=== PATIENT | male | born 1955 | race Caucasian/White ===

== ENCOUNTER → 2018-01-21 10:46 | Outpatient (CLI) | payer BC, SELFPAY ==
[2018-01-21 09:45] VITALS: BMI 31.1
--- NOTE | 2018-01-21 10:48 | CDU_ITS ---
Reason For Study: VERTIGO Rt. Velocities/BP Lt. Velocities/BP Prox CCA 96.2/25.8 cm/sec. Prox CCA 101/26.4 cm/sec. Mid CCA 105/30.5 cm/sec. Mid CCA 96.2/27.6 cm/sec. Dist CCA 103/29.9 cm/sec. Dist CCA 62.1/23.5 cm/sec. Prox ICA 67.4/23.5 cm/sec. Prox ICA 59.8/22.3 cm/sec. Mid ICA 56.3/23.5 cm/sec. Mid ICA 45.2/24.0 cm/sec. Dist ICA 69.3/33.3 cm/sec. Dist ICA 71.9/39.3 cm/sec. Rt. ICA/CCA = .7. Lt. ICA/CCA = .7. Prox ECA 81.5/14.7 cm/sec. Prox ECA 59.8/11.1 cm/sec. Rt. Vert. 49.5/21.2 cm/sec. Lt. Vert. 45.2/22.8 cm/sec. Right Extracranial There is intimal thickening but no significant atherosclerotic plaque noted in the right common carotid artery. There is homogeneous, smooth atherosclerotic plaque noted in the right internal carotid artery. There is intimal thickening but no significant atherosclerotic plaque noted in the right external carotid artery. Antegrade flow is noted in the right vertebral artery. There is homogeneous, smooth atherosclerotic plaque noted in the right bulb. Left Extracranial There is homogeneous, smooth atherosclerotic plaque noted in the left common carotid artery. There is heterogeneous, smooth atherosclerotic plaque noted in the left internal carotid artery. There is intimal thickening but no significant atherosclerotic plaque noted in the left external carotid artery. Antegrade flow is noted in the left vertebral artery. There is heterogeneous, smooth atherosclerotic plaque noted in the left bulb. Procedure Carotid Duplex 44186. The exam was diagnostic. Exam performed in department. Interpretation Summary Mild (<50%) stenosis right extracranial internal carotid. Mild (<50%) stenosis left extracranial internal carotid. Flow within the vertebral arteries is antegrade bilaterally. Ordering Physician: Román Fried Performed By: Isaac Urbano RVT
== END ==
PROVIDERS: Family Provider Family Medicine; PCP Family Medicine; Visit Provider Internal Medicine Cardiovascular Disease
DX: I65.29 Occlusion and stenosis of unspecified carotid artery (principal)
CPT/HCPCS: 93880

== ENCOUNTER → 2018-06-10 15:45 | Outpatient (CLI) | payer BC, SELFPAY ==
[2018-01-21 09:45] VITALS: BMI 31.1
--- NOTE | 2018-06-10 15:49 | RAD_ITS ---
STUDY: X-RAY - LUMBAR SPINE REASON FOR EXAM: Male, 62 years old. Back pain. TECHNIQUE: 2 view(s) of the lumbar spine were obtained. COMPARISON: None FINDINGS: There is approximately 8.6 degrees of leftward lumbar degenerative scoliosis with a mild associated rotatory component. Mild to moderate spondylosis is seen throughout the lumbar spine. There is no acute fracture lucency. There is no cortical step-off. There is no acute compression deformity. Regions of the lungs within the field of view appear unremarkable. There is moderate facet arthrosis involving L3, L4, L5 and S1. There may be mild L5-S1 and mild L4-L5 degenerative disc disease. RAD/Lumbar Spine 2 or 3 Views IMPRESSION: No evident acute osseous abnormality. Degenerative rotoscoliosis, mild. Please see above. Spondylosis, facet arthrosis and degenerative disc disease as outlined above. Electronically Signed: Black Stacy MD at 16:27 EDT , Service support ,
== END ==
PROVIDERS: Family Provider Family Medicine; PCP Family Medicine; Referring Provider Anesthesiology Pain Medicine; Visit Provider Anesthesiology Pain Medicine
DX: M54.9 Dorsalgia, unspecified (principal)
CPT/HCPCS: 72100

== ENCOUNTER 2018-06-19 21:20 | Emergency (ER) | payer BC, SELFPAY ==
[2018-01-21 09:45] VITALS: BMI 31.1
[2018-06-19 21:21] VITALS: BP 162/88; PULSE 65; RESP 18; TEMP 36.1; O2SAT 98; BMI 30.1
--- NOTE | 2018-06-19 22:00 | CT_ITS ---
STUDY: CT ABDOMEN AND PELVIS WITHOUT CONTRAST REASON FOR EXAM: Male, 62 years old. Right flank pain RADIATION DOSAGE (If Supplied By Facility): CTDIvol = ( 14.01 ) mGy, DLP = ( 756.12 ) mGycm TECHNIQUE: Transaxial images were obtained from the dome of the diaphragm to the symphysis pubis without oral contrast, and without intravenous contrast. Sagittal and coronal images were reconstructed. Individualized dose optimization techniques were used for this CT. COMPARISON: None. FINDINGS: The visualized lung bases are unremarkable. The visualized portions of the heart are within normal limits. Normal liver. Normal gallbladder and extrahepatic biliary system. Normal spleen. Normal pancreas. Normal bilateral adrenal glands. 4 mm stone in the distal right ureter just above the ureterovesical junction with changes of moderate acute obstructive uropathy. Multiple nonobstructing left renal stones. Normal visualized stomach. Normal small intestine. Normal colon. Appendectomy. Normal abdominal aorta. Normal inferior vena cava. Normal retroperitoneum. Normal urinary bladder. Normal abdominal wall. Bilateral hip prostheses. Remote deformity of the right iliac crest. CT/Abdomen/Pelvis without Cont IMPRESSION: 4 mm stone in the distal right ureter just above the ureterovesical junction with changes of moderate acute obstructive uropathy. Electronically Signed: Jean Claude Mcallister MD at 22:44 EDT Tel , Service support ,
[2018-06-19] MEDS: Ondansetron 4 MG/2 ML Vial IV (22:16)
[2018-06-19] MEDS: Ketorolac 30 MG/ML Syringe IV (22:16)
[2018-06-19] MEDS: 0.9% Normal Saline 1,000 ML 1000 ML IV (22:16)
[2018-06-19 22:29] LABS: Absolute Lymphocyte Count 1.52 X10^3/ul (0.83-4.51); Absolute Neutrophil Count 7.5 X10^3/uL (2.0-7.7); Basophil# 0.01 X10^3/uL; Basophil% 0.1 % (0-1); Eosinophil# 0.01 X10^3/uL; Eosinophils% 0.1 % (0-5); Hemoglobin 14.8 g/dl (13.0-16.5); Lymphocyte # 1.52 X10^3/ul (4.0); Mean Corp Hgb Conc 34.4 g/gl (32-36); Mean Corpuscular Hgb 29.7 pg (27.0-32.0); Mean Corpuscular Volume 86.3 fL (80-94); Mean Platelet Vol. 10.2 fl (6.2-12.0); Monocyte% 5.3 % (0-10); Neutrophil # 7.46 X10^3/uL (2.7-7.7); Neutrophil % 78.4 % (47-70); Platelet Count 143 K/mm3 (150-450); RBC Distribution Width SD 41.1 fl (35.1-43.9); Red Blood Count 4.98 M/mm3 (4.6-6.2); White Blood Count 9.5 K/mm3 (4.4-11.0)
[2018-06-19 22:30] LABS: POSITIVE COUNT NO; POSITIVE DIFFERENTIAL NO; POSITIVE MORPHOLOGY NO
[2018-06-19 22:45] LABS: Bacteria 0 SEEN /hpf (None Seen); Mucous, Urine 0 SEEN /hpf (<or=2+); Squamous Epithelial Cells - UA 0 SEEN /hpf (0-5); White Blood Cells 0 SEEN /hpf (0-5)
[2018-06-19 22:46] LABS: ALB/GLOB Ratio 1.6 RATIO (0.9-2.4); AST(SGOT) 28 U/L (15-37); Alanine Aminotransfer ALT/SGPT 39 U/L (16-61); Albumin, Serum 4.1 g/dL (3.2-5.0); Alkaline Phosphatase 58 U/L (45-117); Anion Gap 6 (5-15); BUN 21 mg/dL (7-18); BUN/Creat Ratio 15.2 RATIO (10-20); Calcium,Total 8.8 mg/dL (8.5-10.1); Chloride 105 mmol/L (98-107); Creatinine, Serum 1.38 mg/dL (0.70-1.30); EST Glomerular Filtration Rate 56 mL/min (>60); Est Glom Filt Rate - Afr Amer 68 mL/min (>60); Estimated Creatinine Clearance 58.78 ml/min; Globulin 2.5 g/dL (2.2-4.2); Glucose 118 mg/dL (74-106); Lipase 56 U/L (73-393); Protein, Total 6.6 g/dL (6.4-8.2); Sodium Level 138 mmol/L (136-145)
[2018-06-19 22:48] LABS: Color, Urine Yellow (Yellow); Glucose, Dipstick Normal (Normal); Ketone-Dipstick 5 mg/dl (Negative); Leukocyte Esterase-Dipstick Negative /ul (Negative); Nitrite-Dipstick Negative (Negative); Occult Blood-Urine 250 /ul (Negative); Protein-Dipstick 15 mg/dl (Negative); Specific Gravity, Urine 1.015 (1.002-1.030); Urine Bilirubin Dipstick Negative (Negative); Urine Clarity Sl. Cloudy (Clear); Urine Urobilinogen Normal (Normal); Urine pH 6.5 (5.0 - 8.0)
[2018-06-19 22:55] LABS: Red Blood Cells-Urine 50-100 SEEN /hpf (0-5)
--- NOTE | 2018-06-19 23:06 | ED.DCSUM_ITS ---
- ER Visit Summary Date of Service: 06/19/18 Chief Complaint: Abdominal pain History of Present Illness: The patient is a 62 M with right flank abdominal pain. Symptoms started today. Associate with nausea. He never had this before. He had some sweats but no fevers. Physical Examination: Afebrile and vital signs unremarkable. Right flank tender to palpation. Otherwise exam unremarkable. Test Results: Urinalysis shows 50-[address] shows a 4 mm right distal ureter stone with moderate obstructive uropathy changes. BUN 21 and creatinine 1.38. Platelets 143. Emergency Department Course and Treatment: Patient treated with fluids, Toradol, Zofran. On reevaluation, the patient's symptoms have resolved. Patient is appropriate for outpatient follow-up. He was referred to urology. He has Percocet at home. He is on Flomax. He was instructed to strain all urine. He will use anti-inflammatories. Return if he has any complications. Treatment Plan: As above Disposition: Discharge Impression: 1. Right ureteral colic This note was generated with [employer] dictation software. It may contain incorrect words, spelling, and punctuation that were not noted in review of the chart prior to signing ED Disposition - Plan for ED Patient: Referrals: Susannha Person MD [Primary Care Provider] -
--- NOTE | 2018-06-19 23:06 | ED.DEP ---
ED Disposition - Plan for ED Patient: Instructions: ED Stone Renal W Colic Prescriptions: Ondansetron [Zofran Odt] 4 mg PO Q8H PRN PRN #10 tab PRN Reason: Nausea Naproxen [Naprosyn] 500 mg PO BID PRN #20 tab Referrals: Aquilino Guerrero MD [STAFF PHYSICIAN] - Graciela Grimaldo MD [STAFF PHYSICIAN] -
[2018-06-19] MEDS: HYDROcodone Bitartrate/Apap 5/325 Tablet PO (23:25)
[2018-06-19 23:28] VITALS: BP 145/84; PULSE 55; RESP 15; O2SAT 98
== END 2018-06-19 23:29 | disposition home or self-care (01) ==
LOC: ED 22:08
PROVIDERS: Emergency Provider Emergency Medicine; Family Provider Family Medicine; PCP Family Medicine
DX: N20.1 Calculus of ureter (principal)
CPT/HCPCS: 74176; 80053; 81001; 83690; 85025; 96361; 96374; 96375; 99283; J7030; A4216; J2405

== ENCOUNTER → 2018-06-23 17:14 | Outpatient (CLI) | payer BC, SELFPAY ==
[2018-06-19 21:21] VITALS: BMI 30.1
[2018-06-27 12:07] LABS: Ca Oxalate, Monohydrate 98 % (.); Size 4x3x3 mm (.)
== END ==
PROVIDERS: Family Provider Family Medicine; PCP Family Medicine; Referring Provider Nurse Practitioner Adult Health; Visit Provider Nurse Practitioner Adult Health
DX: N20.0 Calculus of kidney (principal)
CPT/HCPCS: 82360

== ENCOUNTER 2018-07-09 10:08 | Day surgery (SDC) | payer BC, SELFPAY ==
--- NOTE | 2018-07-09 10:16 | RAD_ITS ---
STUDY: X-RAY - ABDOMEN/PELVIS REASON FOR EXAM: Male, 62 years old. Abdominal pain. Kidney stones. TECHNIQUE: Single AP view of the abdomen / pelvis. COMPARISON: None. FINDINGS: Normal visualized lung bases. There is a moderate amount of colonic fecal material. Surgical sutures are seen in the medial aspect of the cecum. There is a 6.4 mm calculus in the upper pole of the left kidney. A punctate calcification is also seen in the lower pole of the left kidney. Normal soft tissue structures. There are degenerative changes of the visualized lumbar spine. Minimal levoscoliosis. Bilateral hip replacements. RAD/Abdomen Single View IMPRESSION: 6.4 mm calculus in the upper pole of the left kidney and a punctate calcification in the lower pole of the left kidney. Electronically Signed: Jose Angel Zhou, at 14:00 EDT , Service support ,
[2018-07-09 10:38] VITALS: BP 118/69; PULSE 50; RESP 16; TEMP 36.5; O2SAT 100; BMI 30.8
--- NOTE | 2018-07-09 12:24 | DCINST_ITS ---
Discharge Diet: Light diet - advance as tolerated Discharge Activity: May not drive while taking narcotic pain medications. Allergies/Adverse Reactions: Allergies No Known Allergies Allergy (Verified 07/02/18 08:50) Medications to take at Discharge atorvastatin 10 mg tablet 10 mg PO DAILY 01/20/18 yxvtsxgrzrvp-vavblopu-jtieoo tablet 1 tab PO DAILY 01/20/18 tamsulosin 0.4 mg capsule 0.4 mg PO DAILY 01/20/18 levothyroxine 200 mcg tablet 200 mcg PO DAILY 01/21/18 omega-3 fatty acids 1,000 mg capsule 1,000 mg PO DAILY 01/21/18 Pantoprazole Sodium 40 mg PO DAILY 06/19/18 Primary Care Physician: Susannah Person MD [Primary Care Provider] - Test Results: Test results from this visit will be discussed in further detail at your follow- up appointment, if applicable. Please Follow Up With: Aquilino Guerrero MD When: in 2 weeks, please call to make an appointment.
[2018-07-09] MEDS: Cefazolin 2 GM in 0.9% Normal Saline 100 ML IV (12:26)
--- NOTE | 2018-07-09 13:44 | OP.PCM_ITS ---
Report of Operation Date of Procedure: 07/09/18 Pre-Operative Diagnosis: Left renal calculi Post-Operative Diagnosis: Same Surgery/Procedure Performed:: Left extracorporeal shockwave lithotripsy Description of Surgical Findings:: 62-year-old male with 2 stones in the left kidney presented to the office after passing a stone fragment today renal proceed with shockwave lithotripsy of the remaining stones in the left kidney. 62-year-old male taken back to the operating room at the smooth induction of general anesthesia he was placed supine on the table we localize the stone in the upper pole the left kidney under fluoroscopy we put the lithotripter under F2 focal point of the stone we delivered a total of 2000 shockwaves To the stone which stone the break-up with a little tiny pieces we could not see the stone fragment after the treatment we did have the shock stone on gated treatments because he was having some ectopy on the first beginning shockwaves, we then treated the stone the lower pole of the left kidney with another 200 s hockwaves. After the treatments both stones were broken up really well no stent was placed patient anesthetic was reversed he was extubated and taken back to the PACU in good condition. He will follow-up in a few weeks with a KUB Type of Anesthesia:: General Drains: none - Admit VTE Documentation VTE Present on Admission: No
[2018-07-09 13:53] VITALS: BP 118/69; BP 141/98; PULSE 61; RESP 18; TEMP 35.7; O2SAT 99
[2018-07-09 13:58] VITALS: BP 118/69; BP 141/98; PULSE 56; RESP 18; TEMP 36; O2SAT 99
[2018-07-09 14:50] VITALS: BP 118/69
== END 2018-07-09 14:51 | disposition home or self-care (01) ==
LOC: SDC 10:09 → AC 10:12
PROVIDERS: Family Provider Family Medicine; PCP Family Medicine; Referring Provider Urology; Visit Provider Urology
PROC: (CPT 50590; principal; 2018-07-09 12:05)
DX: N20.0 Calculus of kidney (principal); N20.1 Calculus of ureter; E03.9 Hypothyroidism, unspecified; M54.9 Dorsalgia, unspecified
CPT/HCPCS: 00873; 50590; 74018; J7120; J2405

== ENCOUNTER → 2019-02-12 10:04 | Outpatient (CLI) | payer BC, SELFPAY ==
[2019-01-22 09:15] VITALS: BMI 31.9
--- NOTE | 2019-02-12 10:04 | CDU_ITS ---
Reason For Study: carotid stenosis Rt. Velocities/BP Lt. Velocities/BP Prox CCA 113.9/21.3 cm/sec. Prox CCA 124.4/28.6 cm/sec. Mid CCA 129.5/25.2 cm/sec. Mid CCA 112.1/26.2 cm/sec. Dist CCA 100.8/23.9 cm/sec. Dist CCA 98.6/24.9 cm/sec. Prox ICA 102.5/15.7 cm/sec. Prox ICA 56.9/20.0 cm/sec. Mid ICA 66.2/23.4 cm/sec. Mid ICA 56.9/18.8 cm/sec. Dist ICA 93.8/38.8 cm/sec. Dist ICA 86.3/33.5 cm/sec. Rt. ICA/CCA = .8. Lt. ICA/CCA = .8. Prox ECA 106.5/20.6 cm/sec. Prox ECA 87.6/13.9 cm/sec. Rt. Vert. 54.2/16.8 cm/sec. Lt. Vert. 50.7/20.0 cm/sec. Right Extracranial There is intimal thickening but no significant atherosclerotic plaque noted in the right common carotid artery. There is homogeneous, smooth atherosclerotic plaque noted in the right internal carotid artery. There is intimal thickening but no significant atherosclerotic plaque noted in the right external carotid artery. Antegrade flow is noted in the right vertebral artery. There is homogeneous, smooth atherosclerotic plaque noted in the right bulb. Left Extracranial There is homogeneous, smooth atherosclerotic plaque noted in the left common carotid artery. There is heterogeneous, smooth atherosclerotic plaque noted in the left internal carotid artery. There is intimal thickening but no significant atherosclerotic plaque noted in the left external carotid artery. Antegrade flow is noted in the left vertebral artery. There is heterogeneous, smooth atherosclerotic plaque noted in the left bulb. Procedure Carotid Duplex [id number]. The exam was diagnostic. Exam performed in department. Interpretation Summary Smooth plaque located with the right carotid bulb and proximal internal carotid artery. <50% stenosis right internal carotid <50% stenosis right external carotid Irregular heterogenous plaque at the proximal left internal carotid <50% stenosis left internal carotid <50% stenosis left external carotid Patent and antegrade vertebrals bilaterally No significant change from the previous examination of January 21, 2018 Ordering Physician: Román Fried Referring Physician: Amber Linares Performed By: Isaac Urbano RVT
== END ==
PROVIDERS: Family Provider Family Medicine; PCP Family Medicine; Referring Provider Physician Assistant Medical; Visit Provider Physician Assistant Medical
DX: I65.29 Occlusion and stenosis of unspecified carotid artery (principal); E78.5 Hyperlipidemia, unspecified
CPT/HCPCS: 93880

== ENCOUNTER 2019-11-09 10:44 | Outpatient (RCR) | payer BC, SELFPAY ==
[2019-01-22 09:15] VITALS: BMI 31.9
--- NOTE | 2019-11-11 09:38 | HP.PTEVAL_ITS ---
Patient's Visit Information ALEE KING is a 63 year old M referred to Physical Therapy by Out of Town Doctor with a diagnosis of R Infraspinatus strain. Date of Evaluation: 11/11/19 Physical Therapist: Connor Palm PT, THI, SCS, CSCS - Visit Plan Frequency: Every Other Week Duration: 4 Weeks Plan: Follow up in 2 week sto recheck. Has a good understanding of what activities and positions will increase pain. - Subjective Patient states that he began to experience R shoulder pain following playing Racketball approximately 1 month ago. Mr. King is quite active playign racketball and lifting weights several times per week. He states about 25 years ago he subluxed his right shoulder during a Judo throw. 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 - Pain Right Shoulder Pain Intensity (Out of 10): 4 Pain Intensity Range: 1, 6 Comment: Depending on activity - Objective MR King is a pleasant 63 you who was referred to our care by Dr Oleary following an injury to his right shoulder. On evaluation today patient has essentially full ROM. He has mildly positive impingement signs with flexion with and overpressure and abduction ext rotation. Additional his has pain with resisted cross arm abduction. His pain is located in the anterior bicep supraspinatus region. Resited internal rotation reproduces some mild discomfort. MMT reveals a slight imbalance R to L and int to ext for this right hand dominate individual. MMT R Ext/Int 28/41.8 L 33/48. I did not appreicate an increase in pain with deep palpation to the infraspinatus tendon at this time. - Goals Goal 1:: Understand the injured anatomy and positions or activities to avoid Goal Time Frame: 1 Week Goal 2:: Start a phase 3 strengthening program follow up in 2 weeks. Goal Time Frame: 2 Weeks Goal 3:: Develop a HEP to work on imbalances R?L and INT Ext. Teach importance of scapula to take force away from rc. - Rehabilitation Potential Physical Therapy Diagnosis: Rotator Cuff strain with potential DJD labral Rehabilitation Potential: Good - Anticipated Interventions Patient/Client Instruction: Educate patient on: Condition, Plan of Care, Benefits of Fitness Program For the Purpose of:: To decrease pain, To increase ROM Therapeutic Exercise to Include: Strength training, Endurance training For the Purpose of:: To decrease pain, To improve performance and independence with ADL's, To improve health of tissue Ultrasound (thermal/non thermal): Yes - PRN For the Purpose of:: To decrease pain, To decrease swelling/inflammation Thank you for the opportunity to evaluate your patient. For Medicare and Medicare HMO plans, please review the plan of care and approve it. It will need to be FAXED BACK to us at [phone] for Medicare purposes. For Medicare only, by signing this I certify the plan of care. Please let me know if there are questions or concerns regarding this plan of care. Physician Sign ature: Date:
== END 2019-11-09 19:00 | disposition home or self-care (01) ==
LOC: PT 10:44
PROVIDERS: PCP Family Medicine; Referring Provider Family Medicine; Visit Provider Family Medicine
DX: S46.811D Strain of other muscles, fascia and tendons at shoulder and upper arm level, right arm, subsequent encounter (principal); M89.9 Disorder of bone, unspecified
CPT/HCPCS: 97110; 97161

== ENCOUNTER → 2020-02-18 09:52 | Outpatient (CLI) | payer BC, SELFPAY ==
[2019-01-22 09:15] VITALS: BMI 31.9
--- NOTE | 2020-02-18 09:55 | CDU_ITS ---
Reason For Study: Bruit Rt. Velocities/BP Lt. Velocities/BP Prox CCA 74.7/13.4 cm/sec. Prox CCA 124.7/20.6 cm/sec. Mid CCA 107.3/20 cm/sec. Mid CCA 106.5/29.8 cm/sec. Dist CCA 103.4/23.9 cm/sec. Dist CCA 86.4/24.3 cm/sec. Prox ICA 83.9/18.6 cm/sec. Prox ICA 77.7/17.6 cm/sec. Mid ICA 57.5/16.8 cm/sec. Mid ICA 53.2/18.8 cm/sec. Dist ICA 97.4/37.1 cm/sec. Dist ICA 97.4/40.7 cm/sec. Rt. ICA/CCA = 0.9. Lt. ICA/CCA = 0.9. Prox ECA 94.3/12.1 cm/sec. Prox ECA 80.2/11.4 cm/sec. Rt. Vert. 52.2/19.2 cm/sec. Lt. Vert. 60.8/21.2 cm/sec. Right Extracranial There is homogeneous, smooth atherosclerotic plaque noted in the right common carotid artery. There is homogeneous, smooth atherosclerotic plaque noted in the right internal carotid artery. There is intimal thickening but no significant atherosclerotic plaque noted in the right external carotid artery. Antegrade flow is noted in the right vertebral artery. There is homogeneous, smooth atherosclerotic plaque noted in the right bulb. Left Extracranial There is homogeneous, smooth atherosclerotic plaque noted in the left common carotid artery. There is heterogeneous, irregular atherosclerotic plaque noted in the left internal carotid artery. There is intimal thickening but no significant atherosclerotic plaque noted in the left external carotid artery. Antegrade flow is noted in the left vertebral artery. There is heterogeneous, irregular atherosclerotic plaque noted in the left bulb. Procedure Carotid Duplex 47116. This is a Carotid Duplex examination using B-mode, color flow and specral Doppler. Exam performed in department. Interpretation Summary Smooth homogeneous plaque of the proximal right internal carotid artery with less than 50% stenosis Less than 50% stenosis right external carotid Minimal irregular heterogenous plaque of the proximal left internal carotid with less than 50% stenosis Less than 50% stenosis left external carotid Patent and antegrade vertebrals bilaterally No change from the previous examination of February 12, 2019 Ordering Physician: Román Fried Referring Physician: Susannah Person Performed By: Margot Plata RVT
[2020-02-18 14:03] LABS: BNP,B-Type NATRIURETIC PEPTIDE 75.8 pg/mL (0-100)
[2020-02-18 14:59] LABS: Anion Gap 4 (5-15); BUN 22 mg/dL (7-18); BUN/Creat Ratio 17.6 RATIO (10-20); Calcium,Total 9.2 mg/dL (8.5-10.1); Chloride 106 mmol/L (98-107); Creatinine, Serum 1.25 mg/dL (0.70-1.30); EST Glomerular Filtration Rate 62 mL/min (>60); Est Glom Filt Rate - Afr Amer 75 mL/min (>60); Glucose 78 mg/dL (74-106); Potassium 3.7 mmol/L (3.5-5.1); Sodium Level 140 mmol/L (136-145); Thyroid Stim Hormone (TSH) < 0.01 uIU/mL (0.358-3.74)
== END ==
PROVIDERS: PCP Family Medicine; Referring Provider Internal Medicine Cardiovascular Disease; Visit Provider Internal Medicine Cardiovascular Disease
DX: E78.5 Hyperlipidemia, unspecified (principal); R09.89 Other specified symptoms and signs involving the circulatory and respiratory systems
CPT/HCPCS: 36415; 80048; 83880; 84443; 93880

== ENCOUNTER 2021-03-27 12:31 | Outpatient (CLI) | payer BC, SELFPAY ==
--- NOTE | 2021-03-27 12:40 | ECHOD_ITS ---
Reason For Study: CAD/ASHD Procedure This was a 2D Doppler, Color Flow transthoracic echocardiogram. Myocardial strain analysis was performed in this exam to aid in the assessment of cardiac function. Exam performed in department. Left Ventricle Normal LV size. Left ventricular systolic function is normal. The estimated ejection fraction is 60 %. Normal diastology for age. No regional wall motion abnormalities noted. Right Ventricle Normal right ventricle. Normal systolic function. Atria Normal left atrium. Normal right atrium. Mitral Valve Normal mitral valve. Tricuspid Valve Normal tricuspid valve. Mild tricuspid valve insufficiency. Pulmonary artery systolic pressure is 26 mmHg. Aortic Valve Normal aortic valve. Trisinus/trileaflet aortic valve. Pulmonic Valve Normal pulmonic valve. Great Vessels Normal aortic root. The pulmonary artery is normal size. Normal inferior vena cava. Pericardium/Pleural No pericardial effusion. MMode/2D Measurements & Calculations LVIDd: 5.7 cm IVSd: 0.94 cm Ao root diam: 3.4 cm LVIDs: 3.8 cm LVPWd: 0.93 cm LA dimension: 3.9 cm RVDd: 4.0 cm FS: 33.2 % LAV(MOD-bp): 67.9 ml LA A4 area: 21.6 cm2 RA A4 area: 22.6 cm2 LAV(MOD-bp) Indexed: 31.1 ml/m2 LAV(MOD-sp2): 67.3 ml LAV(MOD-sp4): 61.7 ml Time Measurements MV dec time: 0.24 sec Doppler Measurements & Calculations MV E max lamont: 56.1 cm/sec Lat Peak E' Lamont: 10.8 cm/sec Med Peak E' Lamont: 9.0 cm/sec MV A max lamont: 50.0 cm/sec E/E' lat: 5.2 E/E' med: 6.2 MV E/A: 1.1 MV V2 max: 58.6 cm/sec MV P1/2t max lamont: 58.9 cm/sec Ao V2 max: 112.4 cm/sec MV max P.4 mmHg MV P1/2t: 91.4 msec Ao max P.0 mmHg MV V2 mean: 31.6 cm/sec MV dec slope: 188.8 cm/sec2 MV mean P.47 mmHg MVA(P1/2t): 2.4 cm2 MV V2 VTI: 26.6 cm LV V1 max: 86.7 cm/sec PA V2 max: 99.2 cm/sec TR max lamont: 239.0 cm/sec LV V1 max P.0 mmHg TR max P.8 mmHg ECHO/Echo Complete Interpretation Summary Normal LV size. Left ventricular systolic function is normal. The estimated ejection fraction is 60 %. Normal diastology for age. Pulmonary artery systolic pressure is 26 mmHg. The global longitudinal strain is normal. The global longitudinal strain = -21 % (normal). Ordering Physician: Román Fried Referring Physician: Susannah Person Performed By: Ki Shen RCS
--- NOTE | 2021-03-27 12:40 | CT_ITS ---
STUDY: CARDIAC CALCIUM SCORING - CT CHEST REASON FOR EXAM: Male, 65 years old. CTA CORONARY ABNL CARDIOVASCULAR RESULTS TECHNIQUE: Axial non-enhanced images were acquired through the heart for the sole purpose of measuring coronary artery calcium. Individualized dose optimization techniques were used for this CT. COMPARISON: None. FINDINGS: Visualized surrounding anatomy: Normal. Left Main Coronary Artery: 88 Left Anterior Descending Artery: 34.6 Left Circumflex Artery: 35 Right Coronary Artery: 5.96 Total Calcium Score: 163 CT/Limited Chest CT w/CCTA IMPRESSION: A Calcium Score of 163 places the patient in the approximate 50 and 75 percentile, based on the [employer] data calculator. Please go to: [email or web address]-[facility].org/Calcium/input.aspx , for a description of the calculator. Electronically Signed: Juan Alberto Sifuentes MD at 13:51 EST ,
[2021-03-27 12:47] VITALS: BP 118/77; PULSE 55; RESP 16; TEMP 36.6; O2SAT 96; BMI 30.8
--- NOTE | 2021-03-27 15:37 | CA.SCORE ---
Calcium Scoring Coronary Calcium Scoring: High-resolution Computed Tomographic imaging of the chest was performed on [03/27/2021], with particular attention paid to the coronary arteries. Images from the examination were analyzed for the presence and extent of coronary artery calcification , using coronary calcium quantification software. The patient tolerated the procedure well and there were no complications. The results of the coronary calcification analysis are provided below. Left main score 87.6 Left anterior descending artery score 36 4.6 Left circumflex artery 35 Right coronary artery score 5.9 Total Agatston score 163 The above is suggestive of moderate plaque burden placing him between the 50th and 75th percentile of people of the same gender and similar age. Calcium Scoring Interpretation: 0 No identifiable atherosclerotic plaque. Very low cardiovascular disease risk. <5% chance of presence coronary artery disease A Negative Examination 1-10 Minimal Plaque burden. Significant coronary artery disease very unlikely. 11-100 Mild plaque burden. Likely mild or minimal coronary atherosclerosis. 101-400 Moderate plaque burden Moderate non-obstructive coronary artery disease highly likely. Over 400 Extensive plaque burden. High likelihood of at least one significant coronary stenosis (>50% diameter)
== END 2021-03-27 23:59 | disposition home or self-care (01) ==
PROVIDERS: PCP Family Medicine; Referring Provider Internal Medicine Cardiovascular Disease; Visit Provider Internal Medicine Cardiovascular Disease
DX: E78.5 Hyperlipidemia, unspecified (principal); R09.89 Other specified symptoms and signs involving the circulatory and respiratory systems; I25.10 Atherosclerotic heart disease of native coronary artery without angina pectoris
CPT/HCPCS: 75571; 76380; 93306

== ENCOUNTER 2021-04-27 06:54 | Outpatient (CLI) | payer BC, SELFPAY ==
--- NOTE | 2021-04-27 13:31 | STRESSREP_ITS ---
Stress Test Report Exercise myocardial perfusion stress test. 65-year-old man with a history of coronary calcification and chest pain. Stress protocol: Resting EKG demonstrates sinus bradycardia with a rate of 48 bpm normal intervals are noted. The patient exercised according to the regular Iban protocol for a total duration of 10 minutes. Patient completed 1 minute into stage IV of the Iban protocol. The maximum heart rate attained was 142 bpm which was 90% of max impact at heart rate the maximum workload was 13.3 metabolic equivalents. At rest there were no ST or T wave changes noted to suggest ischemia and at peak exercise upsloping ST changes were noted with did not meet the criteria for ischemia. The peak blood pressure was 180/92 mmHg wit h a rate-pressure product of 21,200. No obvious clinical angina was noted. Myocardial perfusion protocol. 12.0 mCi of technetium 99m sestamibi was injected at rest. The patient exercised according to regular Iban protocol for total duration of 10 minutes and at peak exercise 34.8 mCi of technetium 99m sestamibi was injected stress images were obtained stress and rest images were reconstructed and compared in the short axis vertical long and horizontal long axis. Gated images were also obtained to Perfusion SPECT analysis: Review of the stress images demonstrate reduced perfusion noted in the mid anterior wall towards the apex. The septum inferior wall and lateral wall appear to be well perfused on the stress images. The resting images demonstrate a similar reduction of perfusion noted in the mid anterior wall towards the apex with probably mild improvement suggesting a mild amount of anterior ischemia at a high workload. The rest of the [place] appear to be normally perfused. Gated SPECT analysis: The gated ejection fraction is 50%. Conclusion: Mildly abnormal exercise myocardial perfusion stress test with mild anterior ischemia at a high workload. Preserved ejection fraction.
--- NOTE | 2021-04-27 15:05 | RAD_ITS ---
EXAM: XR CHEST, 2 VIEWS CLINICAL INDICATION: chest pain TECHNIQUE: Frontal and lateral views of the chest. This report was created using [employer] report generation technology. COMPARISON: None. FINDINGS: LUNGS AND PLEURAL SPACES: Unremarkable. No consolidation or edema. No pneumothorax. No effusion. HEART: Unremarkable. Cardiac silhouette not enlarged. MEDIASTINUM: Central airways and mediastinal contour are unremarkable. BONES/JOINTS: Unremarkable. SOFT TISSUES: Unremarkable. RAD/Chest PA and Lateral IMPRESSION: No radiographic evidence of acute cardiopulmonary disease. Electronically Signed: Juan Alberto Sifuentes MD at 16:00 EST ,
[2021-04-27 15:16] LABS: Absolute Lymphocyte Count 2.19 X10^3/uL (0.83-4.51); Absolute Neutrophil Count 3.4 X10^3/uL (2.0-7.7); Basophil# 0.03 X10^3/uL; Basophil% 0.5 % (0-1); Eosinophil# 0.17 X10^3/uL; Eosinophils% 2.7 % (0-5); Hematocrit 46.1 % (40-54); Hemoglobin 15.2 g/dL (13.0-16.5); Lymphocyte # 2.19 X10^3/ul (0.83-4.51); Lymphocyte % 34.8 % (19-41); Mean Corpuscular Volume 91.1 fL (80-94); Mean Platelet Vol. 10.7 fl (6.2-12.0); Monocyte% 7.9 % (0-10); NRBC Flagged by Analyzer 0 % (0-5); Neutrophil # 3.39 X10^3/uL (2.7-7.7); Neutrophil % 53.9 % (47-70); Platelet Count 163 K/mm3 (150-450); RBC Distribution Width CV 12.5 % (11.6-14.6); RBC Distribution Width SD 41.6 fl (35.1-43.9); Red Blood Count 5.06 M/mm3 (4.6-6.2); White Blood Count 6.3 K/mm3 (4.4-11.0)
[2021-04-27 16:02] LABS: Anion Gap 3 (5-15); BUN 23 mg/dL (7-18); BUN/Creat Ratio 18.9 RATIO (10-20); Calcium,Total 8.9 mg/dL (8.5-10.1); Chloride 105 mmol/L (98-107); Creatinine, Serum 1.22 mg/dL (0.70-1.30); EST Glomerular Filtration Rate 64 mL/min (>60); Est Glom Filt Rate - Afr Amer 77 mL/min (>60); Glucose 97 mg/dL (74-106); Sodium Level 139 mmol/L (136-145)
== END 2021-04-27 23:59 | disposition home or self-care (01) ==
LOC: CVS 07:01 → LAB 14:54
PROVIDERS: PCP Family Medicine; Referring Provider Internal Medicine Cardiovascular Disease; Visit Provider Internal Medicine Cardiovascular Disease
DX: R93.1 Abnormal findings on diagnostic imaging of heart and coronary circulation (principal); R09.89 Other specified symptoms and signs involving the circulatory and respiratory systems; E78.5 Hyperlipidemia, unspecified; R07.9 Chest pain, unspecified; R94.39 Abnormal result of other cardiovascular function study; L81.9 Disorder of pigmentation, unspecified; E66.9 Obesity, unspecified
CPT/HCPCS: 36415; 71046; 78452; 80048; 85025; 93017; A9500

== ENCOUNTER 2021-04-28 06:47 | Day surgery (SDC) | payer BC, SELFPAY ==
[2021-04-27 14:36] VITALS: BMI 31.8
--- NOTE | 2021-04-28 07:39 | PCM.CONS.C ---
Assessment & Plan Assessment/Plan (1) Abnormal nuclear stress test: PLAN: He presents with an abnormal exercise myocardial perfusion stress test with evidence of anterior ischemia and a moderate size zone. Due to his risk factors it was felt that we should pursue a left heart catheterization. The risk benefits alternatives have been explained to him he understands and agrees to proceed. (2) HLD (hyperlipidemia): PLAN: He does have a history of hyperlipidemia for which he remains on lipid-lowering therapy. Thank you for allowing me to participate in the care of your patient. Please don't hesitate to call if any issues arise. HPI Consult Data Date of Consult: 04/28/21 HPI Narrative HPI Narrative: ALEE ROSALES, is a 65 M who presents for a cardiac evaluation. He has a significant family history of coronary disease. He had been evaluated with a stress test in 2017 which demonstrated no evidence of ischemia. He underwent a coronary calcium evaluation which demonstrated mild calcification noted in the left main coronary artery. He therefore underwent stress testing after complaining of some chest discomfort where he exercised to 10 metabolic equivalents with anterior perfusion abnormality suggestive of possible anterior ischemia. Due to the fact that he had complained of this chest heaviness radiating down his arm not associated with nausea vomiting or diaphoresis was felt that he needed to have further evaluation. He has been compliant with his medication and his lipid-lowering lifestyle. [facility] Medical History Bruit Carotid artery stenosis HLD (hyperlipidemia) Hypothyroidism Obesity Ureteral calculi Home Medications [id number]-[id number]-[id number] tablet 1 tab PO DAILY 01/20/18 [History Last Taken Unknown] omega-3 fatty acids 1,000 mg capsule 1,000 mg PO DAILY 01/21/18 [History Last Taken Unknown] pantoprazole 40 mg PO DAILY 06/19/18 [History Last Taken 04/28/21] Lactobacillus acidophilus 10,000 mmu cells PO DAILY 01/22/19 [History Last Taken Unknown] atorvastatin 20 mg tablet 20 mg PO DAILY #90 tab 02/21/21 [Rx Last Taken Unknown] levothyroxine 200 mcg tablet 137 mcg PO DAILY tab 02/21/21 [History Last Taken 04/28/21] tamsulosin 0.4 mg capsule 0.4 mg PO DAILY cap 02/21/21 [History Last Taken Unknown] melatonin 10 mg PO QHS 03/27/21 [History Last Taken Unknown] aspirin 81 mg tablet,delayed release 81 mg PO DAILY 04/27/21 [History Last Taken 04/28/21] Allergy/AdvReac Type Severity Reaction Status Date / Time No Known Allergies Allergy Verified 03/27/21 12:45 Family History Grandmother CAD (coronary artery disease) Grandfather Myocardial infarction Surgical History H/O knee surgery History of appendectomy History of hip replacement History of lithotripsy (06/2018) History of surgery on arm History of thumb surgery Social History Smoking Status: Never smoker alcohol intake: current alcohol intake frequency: a few times a week substance use type: does not use ROS Constitutional Constitutional: Denies fever(s) or weight loss Eyes Eyes: Reports systems reviewed and no addt'l complaints, except as documented ENT HEENT: Reports systems reviewed and no addt'l complaints, except as documented Cardiovascular Cardiovascular: Reports chest pain at rest and chest pain with activity; Denies dyspnea at rest, dyspnea on exertion, edema, palpitations or paroxysmal nocturnal dyspnea Respiratory/Chest Respiratory/Chest: Denies dyspnea on exertion, productive cough, shortness of breath at rest or shortness of breath with exertion Gastrointestinal Gastrointestinal: Denies change in bowel habits, nausea, vomiting or weight changes Genitourinary Genitourinary: Denies difficulty urinating Musculoskeletal Musculoskeletal: Denies joint stiffness or muscle weakness Integumentary Integumentary: Denies lesions Neurologic Neurologic: Denies dizziness or syncope Psychiatric Psychiatric: Denies anxiety Endocrine Endocrinology: Denies excessive sweating or fatigue Hematologic/Lymphatic Hematologic/Lymphatic: Denies anemia Allergic/Immunologic Allergic/Immunologic: Denies seasonal rhinorrhea Physical Exam Const alert, oriented x3 and no apparent distress General Appearance: cooperative HEENT hearing grossly normal bilaterally Head and Scalp: atraumatic Eyes EOMs intact bilaterally Neck General: normal visual inspection Chest inspection of chest normal and palpation of chest normal Resp normal respiratory effort Auscultation: clear to auscultation bilaterally Cardio regular rate, regular rhythm, S1 normal heart sound and S2 normal heart sound Jugular Venous Distention: JVD GI normal to inspection, nondistended, normoactive bowel sounds Extremity normal capillary refill and no pedal edema Peripheral Pulses: Yes pulses 2+ throughout and femoral pulses present Skin no rashes or lesions noted Neuro oriented x3 and CN's II-XII intact bilaterally Psych Appearance: grossly normal and appropriate Risk Stratification Risk Stratification Applicable: No Objective Data Vital Signs: Weight: 222 lb Body Mass Index (BMI) 31.8 Cardiology Labs/Tests Rhythm: EKG: ECHO: Stress Test: Cardiac Cath: PCI: CT Surgery: Holter monitor: EPS: PPM: CXR: Chest CT Scan:
--- NOTE | 2021-04-28 08:25 | CL.D_ITS ---
Patient Name: ALEE ROSALES Study Date: 04/28/2021 Performing: Román Fried MD Ht: 70.07 inches 178 cm : 1955 Wt: 222.67 lbs 101 kg Age: 65 Gender: male BSA: 2.19 PROCEDURE(S) PERFORMED DC01-([id number])LHC/COR/LV CLINICAL PROFILE AND INDICATIONS Indications: Suspected CAD Heart Failure: None Stress/Imaging Date: 04/27/2021tress Test with SPECT MPI: Positive Intermediate Risk CAD Presentations: Symptom unlikely to be ischemic. CONCLUSIONS Normal coronary arteries Mild left ventricular systolic dysfunction with mild anterior hypokinesis. RECOMMENDATIONS Medical therapy DESCRIPTION OF PROCEDURE The patient arrived to the procedure lab. The risks and benefits of the procedure as well as a full d escription of our services here and current unavailability of surgical backup were fully explained to the patient and/or their significant other prior to the catheterization. The Timeout was completed, verifying the correct patient and procedure. The patient's procedural site was prepped and draped in the usual fashion. Local anesthetic was given subcutaneously to right radial region with Lidocaine 2% . Using a modified Seldinger technique, arterial access was obtained via the right radial artery, a 6 Fr sheath was inserted. Left Coronary Artery selective angiography was performed in multiple views u sing a 5 Fr. 4.0 [place] catheter. Right Coronary Artery selective angiography was then performed in mu ltiple views using a 5 Fr. 4.0 [place] catheter. Left Ventriculography was performed in CHUNG projection using a 5 Fr. Pigtail catheter. LV to AO pullback pressures were then recorded.The arterial sheath was pulled and a TR Band was applied for hemostasis CORONARY ANGIOGRAPHY DOMINANCE: Right Dominant LEFT HEART ASSESSMENT Left Ventricular Ejection Fraction: by LV Gram 50 % Abnormal LV wall motion. Anterior Hypokinesis - Mild Depressed Left Ventricular systolic function LEFT MAIN: Angiographically normal LEFT ANTERIOR DESCENDING ARTERY: No significant disease noted CIRCUMFLEX ARTERY: No significant disease noted RIGHT CORONARY ARTERY: Mild luminal irregularities COMPLICATIONS No Complications PROCEDURE MEDICATIONS Versed 1 mg IV Fentanyl 50 mcg IV Oxygen: 2 L/min via nasal cannula Heparin given IA 04/28/2021 08:03:00 SUMMARY OF HEMODYNAMIC DATA Time AIR REST ECG 07:02:31 Art 137/69 (92) 07:58:39 AO 113/65 (89) SA 08:04:18 LV 101/3, 8 08:09:59 LV 97/5, 8 08:10:06 LV 101/1, 19 08:11:38 LV 96/5, 9 08:11:45 LVp 96/6, 9 08:11:54 AOp 111/68 (87) 08:11:59 Signed By Román Fried MD On 04/28/2021 08:23:38 Román Fried MD
== END 2021-04-28 23:59 | disposition home or self-care (01) ==
LOC: CLSP 06:48
PROVIDERS: PCP Family Medicine; Visit Provider Internal Medicine Cardiovascular Disease
DX: I25.10 Atherosclerotic heart disease of native coronary artery without angina pectoris (principal); E78.5 Hyperlipidemia, unspecified; E03.9 Hypothyroidism, unspecified; Z79.82 Long term (current) use of aspirin; Z79.899 Other long term (current) drug therapy
CPT/HCPCS: 93458; 99152; 99153; J7040; C1769; C1894; Q9967